=== PATIENT | male | born 1985 | race Caucasian/White ===

== ENCOUNTER 2018-10-21 16:54 | Outpatient (CLI) | payer OTHER ==
--- NOTE | 2018-10-21 17:18 | RAD ---
Cervical spine 4 views HISTORY: Neck pain. FINDINGS: Vertebral body heights are maintained. Mild disc space narrowing and minimal retrolisthesis at the C5-6 level. No acute fracture or dislocation. Cervicothoracic junction is intact. IMPRESSION: Mild degenerative changes of the lower cervical spine. No acute osseous abnormalities are demonstrated.
== END 2018-10-21 16:55 | disposition home or self-care (01) ==
LOC: SCSRAD 16:54
PROVIDERS: ATTEND Family Medicine
DX: M54.2 Cervicalgia (principal); M47.812 Spondylosis without myelopathy or radiculopathy, cervical region
CPT/HCPCS: 72040